=== PATIENT | male | born 1985 | race Caucasian/White ===

== ENCOUNTER 2016-12-21 15:47 | Emergency (ER) | payer MEDICAID ==
[~2016-12-21] VITALS: Ht 167.6 cm; Wt 102.1 kg
[~2016-12-21 15:47] MED LIST: NORCO 10/325 MG1 TAB PO
[2016-12-21 15:56] VITALS: BP 144/75
--- NOTE | 2016-12-21 16:38 | NUR ---
Patient ambulated to bed 3 with family. RN evaluating patient at bedside.
--- NOTE | 2016-12-21 17:00 | NUR ---
30/M TO ED WITH C/O CHEST PAIN STARTING 0300 THIS MORNING. PAIN RADIATES DOWN RIGHT SIDE OF BODY. PT STATES HE HAS SOB. PAIN 8/10. LUNGS CLEAR BILAT. HR EVEN AND REGULAR. RADIAL PULSES PRESENT BILAT. NO EDEMA PRESENT. AAOX4. VSS. NO SIGNS OF DISTRESS.
[2016-12-21] MEDS ORDERED: KETOROLAC 60 MG/2 ML VIAL IM ONE (17:20)
[2016-12-21 17:42] VITALS: BP 136/76
== END 2016-12-21 17:42 | disposition home or self-care (01) ==
LOC: MED 15:47
DX: R07.89 Other chest pain (principal)
CPT/HCPCS: 71020; 96372; 99284; J1885

== ENCOUNTER 2016-12-29 21:17 | Emergency (ER) | payer MEDICAID ==
[~2016-12-29] VITALS: Ht 167.6 cm; Wt 98.9 kg
[2016-12-29 21:44] VITALS: BP 121/70
--- NOTE | 2016-12-29 23:44 | NUR ---
PATIENT LEFT WITHOUT BEING SEEN BY DR. Oreilly. NO FURTHER CARE PROVIDED FOR PATIENT.
== END 2016-12-29 23:44 | disposition left against medical advice (07) ==
LOC: MED 21:17
DX: R06.02 Shortness of breath (principal); Z53.21 Procedure and treatment not carried out due to patient leaving prior to being seen by health care provider

== ENCOUNTER 2018-09-30 20:08 | Emergency (ER) | payer MEDICAID ==
[~2018-09-30] VITALS: Ht 167.6 cm; Wt 77.1 kg
[~2018-09-30 20:08] MED LIST changes: +ACET-787 PO; -NORCO 10/325 MG1 TAB PO
[2018-09-30 20:35] VITALS: BP 137/90
--- NOTE | 2018-09-30 20:47 | NUR ---
PT AMBULATED TO LOBBY WITH VSS.
--- NOTE | 2018-09-30 21:00 | NUR ---
PT BIB SELF C/O EPIGASTRIC PAIN, RADIATES TO LEFT RIB AND UP X2 DAYS. PT STATES SUDDEN ONSET OF PAIN. ABD IS FIRM, TENDER IN UPPER QUAD, NO REDNESS AT THIS TIME. DENIES TRAUMA OR INJURY. PT STATES 10/10 BURNING PAIN. --DENIES N/V/D; SKIN IS PINK/WARM/DRY; AAOX4 WITH EVEN AND STEADY GAIT; LUNGS CLEAR BL; HR EVEN AND REGULAR; PT DENIES ANY FEVER, CP, SOB, OR COUGH AT THIS TIME; VSS; PATIENT POSITIONED FOR COMFORT; HOB ELEVATED; BEDRAILS UP X2; BED DOWN. ER MD MADE AWARE OF PT STATUS. PMH: DENIES RX: DENIES
[2018-09-30 21:13] LABS: BASOPHILS # (AUTO) 0.1 K/uL (0.00-0.22); BASOPHILS % (AUTO) 0.7 % (0.0-2.0); EOSINOPHILS # (AUTO) 0.1 K/uL (0-0.4); EOSINOPHILS % (AUTO) 0.6 % (0.0-4.0); HEMATOCRIT 42.2 % (36-52); HEMOGLOBIN 14.4 g/dL (12.0-18.0); LYMPHOCYTES # (AUTO) 2.2 K/uL (2.0-11.5); LYMPHOCYTES % (AUTO) 21.6 % (20.5-51.1); MEAN CORPUSCULAR HEMOGLOBIN 29 pg (27-31); MEAN CORPUSCULAR HGB CONC 34 g/dL (33-37); MEAN CORPUSCULAR VOLUME 86.3 fL (80-94); MONOCYTES # (AUTO) 0.7 K/uL (0.8-1.0); MONOCYTES % (AUTO) 7.2 % (1.7-9.3); NEUTROPHILS % (AUTO) 69.9 % (42.2-75.2); PLATELET COUNT (AUTO) 249 K/uL (140-450); RED BLOOD CELL COUNT(AUTO) 4.89 MIL/uL (4.20-6.10); RED CELL DISTRIBUTION WIDTH 13.3 % (11.6-13.7)
[2018-09-30 21:28] LABS: ANION GAP 15.6 (8-16); CARBON DIOXIDE 26.9 mmol/L (21-32); CREATININE 0.9 mg/dL (0.7-1.3); POTASSIUM 3.5 mmol/L (3.5-5.1)
[2018-09-30 21:34] LABS: ALBUMIN 4.2 g/dL (3.4-5.0); TOTAL BILIRUBIN 0.3 mg/dL (0.0-1.0)
[2018-09-30] MEDS ORDERED: LIDOCAINE VISCOUS 2% 20 ML UDC PO ONE (21:35)
[2018-09-30] MEDS ORDERED: ALUMINUM HYD/MAG/SIMETHICONE 30 ML UDC PO ONE (21:35)
[2018-09-30] MEDS ORDERED: KETOROLAC 30 MG/ML VIAL IM ONE (21:35)
[2018-09-30] MEDS ORDERED: PANTOPRAZOLE 40 MG TABEC PO ONE (21:35)
[2018-09-30 22:05] VITALS: BP 154/76
--- NOTE | 2018-09-30 22:05 | NUR ---
Patient discharged with v/s stable. Written and verbal after care instructions given and explained. Patient alert, oriented and verbalized understanding of instructions. Ambulatory with steady gait. All questions addressed prior to discharge. ID band removed. Patient advised to follow up with PMD. Rx of MAALOX AND PROTONIX given. Patient educated on indication of medication including possible reaction and side effects. Opportunity to ask questions provided and answered.
== END 2018-09-30 22:05 | disposition home or self-care (01) ==
LOC: MED 20:08
DX: K29.70 Gastritis, unspecified, without bleeding (principal); Z79.899 Other long term (current) drug therapy
CPT/HCPCS: 36415; 71046; 80053; 83690; 84484; 85025; 87086; 96372; 99284; J1885; 93005